=== PATIENT | female | born 1995 | race Two or more races ===

== ENCOUNTER 2021-01-30 02:07 | Emergency (ER) | payer OTHER ==
[~2021-01-30] VITALS: Ht 162.6 cm; Wt 59.0 kg
[2021-01-30 02:07] VITALS: BP 131/79
[2021-01-30] MEDS ORDERED: ONDANSETRON HCL/PF 4 MG/2 ML VIAL ONE (02:21)
[2021-01-30] MEDS ORDERED: ONDANSETRON 4 MG TAB.RAPDIS SL ONE (02:30)
[2021-01-30] MEDS ORDERED: IV NS 0.9% 500 ML BAG IV ONE (02:30)
[2021-01-30] MEDS ORDERED: ONDANSETRON HCL/PF 4 MG/2 ML VIAL IV ONE (02:30)
[2021-01-30] MEDS ORDERED: ONDA4TAB5 PO (02:32)
--- NOTE | 2021-01-30 03:10 | NUR ---
Patient discharged to home in stable condition. Written and verbal after care instructions given. Patient verbalizes understanding of instruction.
--- NOTE | 2021-01-30 03:10 | NUR ---
IV removed. Catheter intact and site benign. Pressure and 4x4 applied to site. No bleeding noted.
--- NOTE | 2021-01-30 03:25 | NUR ---
patient taken home by boyfriend.
== END 2021-01-30 03:26 | disposition home or self-care (01) ==
LOC: ER 02:09
DX: R11.2 Nausea with vomiting, unspecified (principal)
CPT/HCPCS: 96374; 99283; J2405